=== PATIENT | male | born 1980 | race Caucasian/White ===

== ENCOUNTER 2019-10-05 07:39 | Emergency (ER) | payer MEDICAID ==
[~2019-10-05] VITALS: Ht 172.7 cm; Wt 64.0 kg
[2019-10-05 07:42] VITALS: BP 151/94
--- NOTE | 2019-10-05 08:59 | NUR ---
CALLED LAB ABOUT UA THAT WAS COLLECTED AT 0810, PER MAINTENANCE ELECTRICIAN THEY HAVE URINE AND WILL RUN LAB TEST NOW
[2019-10-05 09:04] LABS: MICROSCOPIC AUTO
[2019-10-05 09:05] LABS: CULTURE INDICATED? YES
[2019-10-05] MEDS ORDERED: CEFTRIAXONE 250 MG ONE (09:56)
[2019-10-05] MEDS ORDERED: AZITHROMYCIN 500 MG TABLET ONE (09:56)
[2019-10-05] MEDS ORDERED: CEFTRIAXONE 1,000 MG IM ONE (10:00)
[2019-10-05] MEDS ORDERED: AZITHROMYCIN 500 MG TABLET PO ONE (10:00)
== END 2019-10-05 10:04 ==
LOC: ED 08:08
DX: N34.2 Other urethritis (principal); F17.200 Nicotine dependence, unspecified, uncomplicated
CPT/HCPCS: 81001; 87086; 87491; 87591; 96372; 99283; J0696